=== PATIENT | male | born 1965 | race Two or more races ===

== ENCOUNTER 2019-07-18 06:36 | Day surgery (SDC) | payer OTHER ==
[~2019-07-18] VITALS: Ht 175.3 cm; Wt 103.9 kg
[2019-07-18 07:12] VITALS: BP 149/88
[2019-07-18 10:08] VITALS: BP 109/73
== END 2019-07-18 09:55 | disposition home or self-care (01) ==
LOC: DS 06:36 → OR 07:30 → DS 07:30
DX: K21.0 Gastro-esophageal reflux disease with esophagitis (principal); K29.50 Unspecified chronic gastritis without bleeding; F41.9 Anxiety disorder, unspecified; E78.5 Hyperlipidemia, unspecified; I10 Essential (primary) hypertension; E66.9 Obesity, unspecified; Z91.040 Latex allergy status; Z90.89 Acquired absence of other organs; Z68.33 Body mass index [BMI] 33.0-33.9, adult; Z79.82 Long term (current) use of aspirin; Z79.899 Other long term (current) drug therapy
CPT/HCPCS: 43235; J1200; J1610; J2250; J2310; J3010; J3490

== ENCOUNTER → 2020-01-16 | Outpatient (CLI) | payer OTHER | END | disposition home or self-care (01) | LOC: MI 16:47 | DX: M54.5 Low back pain (principal) ==